=== PATIENT | male | born 1980 | race African-American/Black ===

== ENCOUNTER 2018-07-11 23:56 | Emergency (ER) | payer OTHER | END 2018-07-12 00:06 | disposition left against medical advice (07) | LOC: ER 23:56 → EDBD 23:56 → ER 07-12 00:06 | DX: R51 Headache (principal); Z53.21 Procedure and treatment not carried out due to patient leaving prior to being seen by health care provider ==

== ENCOUNTER 2018-07-12 01:22 | Emergency (ER) | payer MEDICAID, OTHER ==
[~2018-07-12] VITALS: Ht 172.7 cm; Wt 86.2 kg
[2018-07-12] MEDS ORDERED: cefTRIAXone 1GM/10ml IVPUSH 10 ML IV ONE (03:15)
[2018-07-12] MEDS ORDERED: methylPREDNISolone SOD SUCC 125 MG/2 ML VL IV ONE (03:15)
[2018-07-12] MEDS ORDERED: SODIUM CHLORIDE 0.9% 1,000 ML IV ONE (03:15)
[2018-07-12] MEDS ORDERED: MORPHINE SULFATE 4 MG/ML SYR/VIAL IV ONE (03:15)
[2018-07-12] MEDS ORDERED: diphenhdrAMINE HCL 50 MG/1 ML VL IV ONE (03:15)
[2018-07-12 04:09] VITALS: BP 142/51
== END 2018-07-12 04:47 | disposition home or self-care (01) ==
LOC: ER 01:22
DX: J32.9 Chronic sinusitis, unspecified (principal); H66.93 Otitis media, unspecified, bilateral
CPT/HCPCS: 70450; 96365; 96375; 99284; J0696; J1200; J2270; J2930; J7030

== ENCOUNTER 2019-07-30 01:02 | Emergency (ER) | payer MEDICAID ==
[~2019-07-30] VITALS: Ht 172.7 cm; Wt 77.1 kg
[2019-07-30 01:16] VITALS: BP 160/100
== END 2019-07-30 01:37 | disposition left against medical advice (07) ==
LOC: EDBD 01:02 → ER 01:06
DX: R07.9 Chest pain, unspecified (principal); Z53.21 Procedure and treatment not carried out due to patient leaving prior to being seen by health care provider

== ENCOUNTER 2021-07-05 14:00 | Emergency (ER) | payer MEDICAID ==
[~2021-07-05] VITALS: Ht 172.7 cm; Wt 43.5 kg
[2021-07-05] MEDS: cefTRIAXone SOD 1,000 MG VL IM ONE (16:07)
[2021-07-05] MEDS: KETOROLAC TROMETH 60MG/2ML VIAL IM ONE (16:08)
[2021-07-05 16:29] VITALS: BP 151/90
== END 2021-07-05 16:33 | disposition home or self-care (01) ==
LOC: ER 14:00
DX: J03.90 Acute tonsillitis, unspecified (principal); J20.9 Acute bronchitis, unspecified; G43.909 Migraine, unspecified, not intractable, without status migrainosus; Z20.822 Contact with and (suspected) exposure to COVID-19
CPT/HCPCS: 36415; 71045; 87426; 96372; 99284; J0696; J1885